=== PATIENT | male | born 1995 | race Caucasian/White ===

== ENCOUNTER → 2021-10-15 | Outpatient (CLI) | payer OTHER ==
[~2021-10-15] MED LIST: INSUASPI SC; INSULANI SC; ONDA4ODT MM; RANI150 PO
== END | disposition home or self-care (01) ==
LOC: LAB SHORT 13:40
DX: J02.9 Acute pharyngitis, unspecified (principal)
CPT/HCPCS: 87081

== ENCOUNTER → 2023-08-31 | Outpatient (CLI) | payer OTHER | END | disposition home or self-care (01) | LOC: LAB 07:46 → LAB SHORT 07:46 | DX: B35.1 Tinea unguium (principal) | CPT/HCPCS: 88305; 88312 ==